=== PATIENT | male | born 1975 | race American Indian/Alaskan Native ===

== ENCOUNTER 2017-07-09 13:04 | Emergency (ER) | payer SELFPAY ==
[2017-07-09 13:14] VITALS: BP 127/73
[2017-07-09] MEDS ORDERED: BOOSTRIX IM ONE (13:35)
--- NOTE | 2017-07-09 13:41 | Emergency Department Report ---
ED ENT HPI - General Chief complaint: Earache Stated complaint: SICK Time Seen by Provider: 07/09/17 13:27 Source: patient Mode of arrival: Ambulatory Limitations: No Limitations - History of Present Illness Initial comments: 42-year-old male pain right tragus after was cleaning his ear several days ago. Here complaints of posterior auricular knots with redness and soft tissue swelling to the right tragus. No hearing loss no stiff neck no fever no stridor no drooling no other complaints MD complaint: ear pain Location: R ear Severity: mild, moderate Quality: burning, aching Consistency: intermittent - Related Data Previous Rx's Medication Instructions Recorded Last Taken Type Ibuprofen [Motrin] 400 mg PO Q8H PRN #14 tablet 07/09/17 Unknown Rx Sulfamethoxazole/Trimethoprim 1 each PO BID #20 tablet 07/09/17 Unknown Rx [Bactrim DS TAB] Allergies Allergy/AdvReac Type Severity Reaction Status Date / Time No Known Allergies Allergy Unverified 07/09/17 13:14 ED Dental HPI - General Chief complaint: Earache Stated complaint: SICK Time Seen by Provider: 07/09/17 13:27 Source: patient Mode of arrival: Ambulatory Limitations: No Limitations - Related Data Previous Rx's Medication Instructions Recorded Last Taken Type Ibuprofen [Motrin] 400 mg PO Q8H PRN #14 tablet 07/09/17 Unknown Rx Sulfamethoxazole/Trimethoprim 1 each PO BID #20 tablet 07/09/17 Unknown Rx [Bactrim DS TAB] Allergies Allergy/AdvReac Type Severity Reaction Status Date / Time No Known Allergies Allergy Unverified 07/09/17 13:14 ED Review of Systems ROS: Stated complaint: SICK Other details as noted in HPI Comment: All other systems reviewed and negative Constitutional: denies: chills, diaphoresis, fever, malaise, weakness Eyes: denies: eye pain ENT: ear pain, other (no ear drainage). denies: throat pain, dental pain, hearing loss, epistaxis Respiratory: no symptoms reported. denies: cough, orthopnea, shortness of breath, SOB with exertion, SOB at rest, stridor, wheezing Cardiovascular: denies: chest pain, palpitations, dyspnea on exertion, orthopnea , edema, syncope, paroxysmal nocturnal dyspnea Gastrointestinal: denies: abdominal pain, nausea, vomiting, diarrhea, constipation, hematemesis, melena, hematochezia Musculoskeletal: denies: joint swelling, arthralgia, myalgia Neurological: denies: headache, weakness, numbness, paresthesias, abnormal gait , vertigo ED Past Medical Hx - Past Medical History Previous Medical History?: No - Surgical History Past Surgical History?: No - Social History Smoking Status: Current Every Day Smoker Substance Use Type: Alcohol - Medications Home Medications: Home Medications Medication Instructions Recorded Confirmed Last Taken Type Ibuprofen [Motrin] 400 mg PO Q8H PRN #14 tablet 07/09/17 Unknown Rx Sulfamethoxazole/Trimethoprim 1 each PO BID #20 tablet 07/09/17 Unknown Rx [Bactrim DS TAB] ED Physical Exam - General Limitations: No Limitations General appearance: alert, in no apparent distress - Head Head exam: Present: atraumatic, normocephalic - Eye Eye exam: Present: normal appearance, PERRL, EOMI - ENT ENT exam: Present: normal orophraynx, mucous membranes moist, TM's normal bilaterally, normal external ear exam, other (tenderness inflammation right tragus canal within normal limits TMs negative bilaterally) - Neck Neck exam: Present: normal inspection, lymphadenopathy. Absent: meningismus - Respiratory Respiratory exam: Present: normal lung sounds bilaterally. Absent: respiratory distress, wheezes, rales, rhonchi, stridor, chest wall tenderness, accessory muscle use, decreased breath sounds, prolonged expiratory - GI/Abdominal GI/Abdominal exam: Present: soft - Extremities Exam Extremities exam: Present: normal inspection - Neurological Exam Neurological exam: Present: alert, altered, oriented X3, CN II-XII intact, normal gait. Absent: motor sensory deficit ED Course Vital Signs 07/09/17 13:12 Temperature 98.9 F Pulse Rate 74 Respiratory 18 Rate Blood Pressure 127/73 O2 Sat by Pulse 100 Oximetry ED Medical Decision Making - Medical Decision Making Patient with a cellulitis no abscess appreciated at this time. He'll be placed on antibiotics and follow-up with regular doctor two d, return if worse nontoxic stable for outpatient follow-up Critical care attestation.: If time is entered above; I have spent that time in minutes in the direct care of this critically ill patient, excluding procedure time. ED Disposition Clinical Impression: Cellulitis Disposition: DC-01 TO HOME OR SELFCARE Is pt being admited?: No Condition: Stable Instructions: Cellulitis (ED) Additional Instructions: See your doctor in 2 days return if new alarming symptoms Prescriptions: Ibuprofen [Motrin] 400 mg PO Q8H PRN #14 tablet PRN Reason: Pain Sulfamethoxazole/Trimethoprim [Bactrim DS TAB] 1 each PO BID #20 tablet Referrals: PRIMARY CARE, [Primary Care Provider] - 3-5 Days Time of Disposition: 13:44
== END 2017-07-09 14:14 | disposition home or self-care (01) ==
LOC: ED 13:04
DX: H60.11 Cellulitis of right external ear (principal)
CPT/HCPCS: 90471; 90715

== ENCOUNTER 2018-02-17 18:42 | Emergency (ER) | payer SELFPAY ==
[2018-02-17 19:01] VITALS: BP 130/74
[2018-02-17] MEDS ORDERED: BENADRYL ONE (19:03)
[2018-02-17] MEDS ORDERED: PEPCID IV ONE ×2 (19:04→19:08)
[2018-02-17] MEDS ORDERED: BENADRYL IV ONE (19:08)
--- NOTE | 2018-02-17 21:54 | Emergency Department Report ---
ED General Adult HPI - General Chief complaint: Allergic Reaction Stated complaint: INSECT BITE Time Seen by Provider: 02/17/18 20:59 Source: patient Mode of arrival: Ambulatory Limitations: No Limitations - History of Present Illness Initial comments: 42-year-old -[place] male reports he had an allergic reaction to bee sting. He comes it will well all over the body itching stinging. Denies any shortness of breath or difficulty swallowing. States that the last time he had to have an appendectomy it was so bad. Patient denies shortness of breathing or difficulty swallowing no chest pain does report that the rash feels like its improvement since having medication in triage. -: This afternoon Location: face, neck, chest, back, left, right, upper extremity Severity scale (0 -10): 8 Quality: other (itchiness) Consistency: constant Improves with: medication Worsens with: other (bee stings) Associated Symptoms: denies other symptoms Treatments Prior to Arrival: none - Related Data Previous Rx's Medication Instructions Recorded Last Taken Type Ibuprofen [Motrin] 400 mg PO Q8H PRN #14 tablet 07/09/17 Unknown Rx Sulfamethoxazole/Trimethoprim 1 each PO BID #20 tablet 07/09/17 Unknown Rx [Bactrim DS TAB] EPINEPHrine [Epipen] 0.3 mg IJ ONCE #1 auto.injct 02/17/18 Unknown Rx Famotidine [Pepcid] 20 mg PO QDAY #10 tablet 02/17/18 Unknown Rx Loratadine [Claritin] 10 mg PO DAILY #10 tablet 02/17/18 Unknown Rx Prednisone [predniSONE 5 mg (6-Day 5 mg PO .TAPER #1 tab.ds.pk 02/17/18 Unknown Rx Pack, 21 Tabs)] Allergies Allergy/AdvReac Type Severity Reaction Status Date / Time No Known Allergies Allergy Unverified 07/09/17 13:14 ED Review of Systems ROS: Stated complaint: INSECT BITE Other details as noted in HPI Comment: All other systems reviewed and negative Skin: rash ED Past Medical Hx - Past Medical History Previous Medical History?: No - Surgical History Past Surgical History?: No - Social History Smoking Status: Current Every Day Smoker Substance Use Type: Alcohol - Medications Home Medications: Home Medications Medication Instructions Recorded Confirmed Last Taken Type Ibuprofen [Motrin] 400 mg PO Q8H PRN #14 tablet 07/09/17 Unknown Rx Sulfamethoxazole/Trimethoprim 1 each PO BID #20 tablet 07/09/17 Unknown Rx [Bactrim DS TAB] EPINEPHrine [Epipen] 0.3 mg IJ ONCE #1 auto.injct 02/17/18 Unknown Rx Famotidine [Pepcid] 20 mg PO QDAY #10 tablet 02/17/18 Unknown Rx Loratadine [Claritin] 10 mg PO DAILY #10 tablet 02/17/18 Unknown Rx Prednisone [predniSONE 5 mg (6-Day 5 mg PO .TAPER #1 tab.ds.pk 02/17/18 Unknown Rx Pack, 21 Tabs)] ED Physical Exam - General Limitations: No Limitations General appearance: alert, in no apparent distress - Head Head exam: Present: atraumatic, normocephalic - Eye Eye exam: Present: EOMI - ENT ENT exam: Present: normal orophraynx, mucous membranes moist - Neck Neck exam: Present: full ROM. Absent: lymphadenopathy - Respiratory Respiratory exam: Present: normal lung sounds bilaterally. Absent: respiratory distress - Cardiovascular Cardiovascular Exam: Present: tachycardia - Neurological Exam Neurological exam: Present: alert, oriented X3 - Psychiatric Psychiatric exam: Present: normal affect, normal mood - Expanded Skin Exam Expanded Type of lesion: Present: rash Distribution of rash: generalized Description of rash: Present: urticarial ED Course Vital Signs 02/17/18 02/17/18 18:58 19:17 Temperature 97.8 F Pulse Rate 114 H Respiratory 18 18 Rate Blood Pressure 130/74 O2 Sat by Pulse 100 Oximetry ED Medical Decision Making - Medical Decision Making Recent has been evaluated by this provider fast track. Patient was given starter Medrol 125 mg I V, Benadryl 50 mg IV and Pepcid 20 mg. Patient reports that he feels much better. Rashes still present but has improved. Discussed patient I would discharge him on a prednisone pack for him to take Claritin and Pepcid for the next few days. Will discharge patient also on EpiPen prescription. Patient verbalizes understanding Critical care attestation.: If time is entered above; I have spent that time in minutes in the direct care of this critically ill patient, excluding procedure time. ED Disposition Clinical Impression: Allergic reaction to bee sting Disposition: DC- TO HOME OR SELFCARE Is pt being admited?: No Does the pt Need Aspirin: No Condition: Stable Instructions: Urticaria (ED), Anaphylaxis (ED), Epinephrine (Injection), Loratadine (By mouth), Famotidine (By mouth) Additional Instructions: Please take medication as prescribed. I recommend for you to get a allergy bracelet stating allergic to bees. Please fill your prescription for EpiPen. Prescriptions: EPINEPHrine [Epipen] 0.3 mg IJ ONCE #1 auto.injct Famotidine [Pepcid] 20 mg PO QDAY #10 tablet Loratadine [Claritin] 10 mg PO DAILY #10 tablet Prednisone [predniSONE 5 mg (6-Day Pack, 21 Tabs)] 5 mg PO .TAPER #1 tab.ds.pk Referrals: PRIMARY CARE, [Primary Care Provider] - 3-5 Days Forms: Work/School Release Form(ED)
== END 2018-02-17 22:12 | disposition home or self-care (01) ==
LOC: ED 18:42
DX: T63.441A Toxic effect of venom of bees, accidental (unintentional), initial encounter (principal); L29.9 Pruritus, unspecified; F17.200 Nicotine dependence, unspecified, uncomplicated; Y92.89 Other specified places as the place of occurrence of the external cause
CPT/HCPCS: 96374; 96375; 99282; J1200; J2930